=== PATIENT | female | born 1980 | race Caucasian/White ===

== ENCOUNTER 2021-02-26 08:39 | Emergency (ER) | payer SELFPAY ==
[2021-02-26] MEDS ORDERED: LIDOCAINE 2% W/EPI 1:200,000 MPF 20 ML VIAL IM ONE (09:14)
--- NOTE | 2021-02-26 09:59 | ER ---
Nurse's Notes [facility] Name: Maria Ines Phillip Age: 40 yrs Sex: Female : 1980 Arrival Date: 02/26/2021 Time: 08:43 Bed 23 Private MD: Diagnosis: Cutaneous abscess of right lower limb Presentation: 02/26 08:44 Chief complaint: Patient states: Pt presents to ER via POV with complaints of right kg thigh pain and possible abscess. Pt has has spot on leg for several months that's continue to get worse. Coronavirus screen: Client denies travel out of the [place] in the last 14 days. At this time, the client does not indicate any symptoms associated with coronavirus-19. Ebola Screen: Patient negative for fever greater than or equal to 101.5 degrees Fahrenheit, and additional compatible Ebola Virus Disease symptoms. Initial Sepsis Screen: Does the patient meet any 2 criteria? RR > 20 per min. Temp <36.0*C (96.8*F)) or > 38.3*C (100.9*F). Systolic BP < 90 mmHg. Does the patient have a suspected source of infection? No. Patient's initial sepsis screen is negative. Risk Assessment: Do you want to hurt yourself or someone else? Patient reports no desire to harm self or others. Onset of symptoms is unknown. Care prior to arrival: None. 08:44 Method Of Arrival: Ambulatory kg 08:44 Acuity: JAMES 4 kg Triage Assessment: 08:44 General: Behavior is calm, cooperative, quiet. Pain: Complains of pain in medial aspect kg of right thigh Pain radiates to right leg Pain currently is 7 out of 10 on a pain scale. Quality of pain is described as aching, tender, Pain began gradually. 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 - Family history:: not pertinent. - Social history:: Smoking status: Patient reports the use of cigarette tobacco products. - Hospitalizations: : No recent hospitalization is reported. Screenin:02 Abuse screen: Denies threats or abuse. Nutritional screening: No deficits noted. kg Tuberculosis screening: No symptoms or risk factors identified. Fall Risk None identified. Assessment: 08:59 General: Appears in no apparent distress. Pain: Complains of pain in right leg Pain kg radiates to right leg Pain currently is 7 out of 10 on a pain scale. level that patient reports is acceptable is 3 out of 10 on a pain scale. Quality of pain is described as aching, Pain began gradually, Is chronic, Alleviated by medications, rest, Aggravated by exercise, increased activity. 09:03 Neuro: No deficits noted. Cardiovascular: No deficits noted. Respiratory: No deficits kg noted. GI: Reports nausea. 09:04 : No deficits noted. EENT: No deficits noted. Derm: Skin is intact, Skin is dry, Skin kg is red, purple Skin temperature is warm Abscess located on medial aspect of right thigh is golf ball sized, Reports increased pain that is 7 out of 10 on a pain scale. Vital Signs: 09:02 BP 147 / 76; Pulse 72; Resp 18; Pulse Ox 100% on R/A; kg 10:51 BP 129 / 76; Pulse 63; Resp 18; Pulse Ox 100% on R/A; kg ED Course: 08:43 Patient arrived in ED. as 08:45 Moreno Simon MD is Attending Physician. rn 08:59 Arianna Sawyer is Primary Nurse. kg 09:02 No apparent distress. kg 09:02 Patient has correct armband on for positive identification. Bed in low position. Call kg light in reach. Side rails up X 1. 09:35 Triage completed. kg 09:59 Cordell Eid MD is Referral Physician. rn 10:52 Assist provider with the repair of a wound dehiscence located on right leg Performed by kg Moreno Simon MD cleaned with Betadine, irrigated with normal saline, packed with Packing, dressed with 4X4s, Patient tolerated well. 10:58 Patient Assisted with I\T\D. Antipyretics given from triage as ordered by an ER provider. kg 10:58 Patient did not have IV access during this emergency room visit. kg Administered Medications: 09:35 Drug: Lidocaine (1 %) 1 vials Volume: 20 ml; Route: Infiltration; kg Outcome: :59 Discharge ordered by . rn 10:57 Discharged to home ambulatory. kg 10:57 Condition: good 10:57 Discharge instructions given to patient, Demonstrated understanding of instructions, follow-up care, medications, wound care, Prescriptions given X 1. 10:59 Patient left the ED. kg Signatures: Tatiana Stanton Roman, MD MD rn Graham, Kristen kg Corrections: (The following items were deleted from the chart) 09:37 09:02 BP 147 / 76; Pulse 18bpm; Pulse Ox 100% RA; kg kg
--- NOTE | 2021-02-26 09:59 | EDPHYS ---
Physician Documentation [facility] Name: Maria Ines Phillip Age: 40 yrs Sex: Female : 1980 Arrival Date: 02/26/2021 Time: 08:43 Bed 23 Private MD: ED Physician Moreno Simon HPI: 02/26 08:53 This 40 yrs old Female presents to ER via Unassigned with complaints of rn Abscess, Thigh Pain. 08:53 The patient presents with an abscess of the right inner thigh. Description: The rn affected area is moderate sized, localized, erythematous, fluctuant, swollen, warm. Onset: The symptoms/episode began/occurred 1 week(s) ago. Possible cause(s): unknown. Associated signs and symptoms: Pertinent positives: erythema, Pertinent negatives: drainage, fever. Modifying factors: the symptoms are alleviated by nothing, the symptoms are aggravated by walking, touching. Severity of symptoms: At their worst the symptoms were moderate, in the emergency department the symptoms are unchanged. The patient has experienced similar episodes in the past. The patient has not recently seen a physician. Reports swelling and pain to right inner thigh, no drainage, hurts to walk because thighs rub together, no fever, reports chronic irritation to area but worse over last few days. . 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 - Family history:: not pertinent. - Social history:: Smoking status: Patient reports the use of cigarette tobacco products. - Hospitalizations: : No recent hospitalization is reported. ROS: 08:53 Constitutional: Negative for fever, chills, and weight loss, Cardiovascular: Negative rn for chest pain, palpitations, and edema, Respiratory: Negative for shortness of breath, cough, wheezing, and pleuritic chest pain, Abdomen/GI: Negative for abdominal pain, nausea, vomiting, diarrhea, and constipation, Back: Negative for injury and pain, MS/Extremity: Negative for injury and deformity, Skin: + abscess/swelling to right inner thigh Neuro: Negative for headache, weakness, numbness, tingling, and seizure. Exam: 08:53 Constitutional: This is a well developed, well nourished patient who is awake, alert, rn and in no acute distress. Skin: Warm, dry MS/ Extremity: Pulses equal, no cyanosis. Neurovascular intact. Full, normal range of motion. Equal circumference. 3cm x 4cm area of erythema and fluctuance/tenderness right proximal inner thigh, no spont drainage. No underlyin erythema or streaking. Swollen area mobile. Vital Signs: 09:02 BP 147 / 76; Pulse 72; Resp 18; Pulse Ox 100% on R/A; kg 10:51 BP 129 / 76; Pulse 63; Resp 18; Pulse Ox 100% on R/A; kg Procedures: 09:57 I \T\ D: Incision and drainage was performed for an abscess of the right medial aspect of rn right thigh Prepped with Betadine, Anesthetized with 5 ml's 1% Lidocaine w/ Epi. Incised with #11 blade. Drained large amount purulent fluid. serosanguinous fluid. bloody fluid. Loculations removed. Abscess cavity explored. Packed with iodoform gauze, Dressing: sterile 4x4 gauze, the patient tolerated the procedure well. MDM: 08:45 Patient medically screened. rn 09:57 Differential diagnosis: abscess, cyst. Data reviewed: vital signs, nurses notes, and as rn a result, I will discharge patient. Counseling: I had a detailed discussion with the patient and/or guardian regarding: the historical points, exam findings, and any diagnostic results supporting the discharge/admit diagnosis, the need for outpatient follow up, to return to the emergency department if symptoms worsen or persist or if there are any questions or concerns that arise at home. Response to treatment: the patient's symptoms have markedly improved after treatment, and as a result, I will discharge patient. Special discussion: I discussed with the patient/guardian in detail that at this point there is no indication for admission to the hospital. It is understood, however, that if the symptoms persist or worsen the patient needs to return immediately for re-evaluation. Based on the history and exam findings, there is no indication for further emergent testing or inpatient evaluation. I discussed with the patient/guardian the need to see the general surgeon for further evaluation of the symptoms. 02/26 08:53 Order name: Incision \T\ Drainage Setup; Complete Time: 09:06 rn Administered Medications: 09:35 Drug: Lidocaine (1 %) 1 vials Volume: 20 ml; Route: Infiltration; kg Disposition: 02/26/21 09:59 Discharged to Home. Impression: Cutaneous abscess of right lower limb. - Condition is Stable. - Discharge Instructions: Skin Abscess, Incision and Drainage, Wound Packing, Incision and Drainage, Care After. - Prescriptions for Clindamycin HCl 300 mg Oral Capsule - take 1 capsule by ORAL route every 6 hours for 10 days; 40 capsule. - Medication Reconciliation Form, Thank You Letter, Antibiotic Education, Prescription Opioid Use form. - Follow up: Cordell Eid MD; When: As needed; Reason: Recheck today's complaints, Re-evaluation by your physician. - Problem is new. - Symptoms have improved. Signatures: Moreno Simon MD MD rn Graham, Kristen kg Corrections: (The following items were deleted from the chart) 10:59 09:59 02/26/2021 09:59 Discharged to Home. Impression: Cutaneous abscess of right lower kg limb. Condition is Stable. Forms are Medication Reconciliation Form, Thank You Letter, Antibiotic Education, Prescription Opioid Use. Follow up: Dr. Cordell Eid; When: As needed; Reason: Recheck today's complaints, Re-evaluation by your physician. Problem is new. Symptoms have improved. rn
[2021-02-26 11:07] VITALS: O2SAT 100
[2021-02-26 11:08] VITALS: BP 129/76
== END 2021-02-26 10:59 | disposition home or self-care (01) ==
LOC: ER 08:39
PROC: 0J9N0ZZ Drainage of Right Lower Leg Subcutaneous Tissue and Fascia, Open Approach (ICD-10-PCS; principal; 2021-02-26)
DX: L02.415 Cutaneous abscess of right lower limb (principal); F17.210 Nicotine dependence, cigarettes, uncomplicated
CPT/HCPCS: 99284

== ENCOUNTER 2021-03-01 14:55 | Emergency (ER) | payer SELFPAY ==
--- NOTE | 2021-03-01 18:25 | ER ---
Nurse's Notes [facility] Name: Maria Ines Phillip Age: 40 yrs Sex: Female : 1980 Arrival Date: 03/01/2021 Time: 15:01 Bed 12 Private MD: Diagnosis: Presentation: 03/01 15:27 Chief complaint: Patient states: Had I\T\D on R inner thigh area. Here to make ll1 sure the packing is fully removed, and to make sure it is healing correctly. Taking antibiotics as prescribed. Coronavirus screen: Client denies travel out of the [place] in the last 14 days. At this time, the client does not indicate any symptoms associated with coronavirus-19. Ebola Screen: Patient denies travel to an Ebola-affected area in the 21 days before illness onset. Initial Sepsis Screen: Does the patient meet any 2 criteria? No. Patient's initial sepsis screen is negative. Does the patient have a suspected source of infection? Yes: Skin breakdown/wound. Risk Assessment: Do you want to hurt yourself or someone else? Patient reports no desire to harm self or others. Onset of symptoms was February 26, 2021. 15:27 Method Of Arrival: Ambulatory ll1 15:27 Acuity: JAMES 5 ll1 Historical: - Allergies: 15:30 No Known Allergies; ll1 - PMHx: 15:30 Asthma; ll1 - PSHx: 15:30 ; ll1 - Immunization history:: Flu vaccine is not up to date. - Social history:: Smoking status: Patient reports the use of cigarette tobacco products, smokes one-half pack cigarettes per day. Vital Signs: 15:27 BP 141 / 105; Pulse 88; Resp 14; Temp 97.3; Pulse Ox 96% ; Weight 99.79 kg; Height 5 ll1 ft. 11 in. (180.34 cm); Pain 2/10; 15:27 Body Mass Index 30.68 (99.79 kg, 180.34 cm) ll1 ED Course: 15:01 Patient arrived in ED. mr 15:27 Arm band placed on. ll1 15:30 Triage completed. [facility] 18:15 [facility] Dutton [facility] arthur 18:15 Romeo Gibbs MD is Attending Physician. arthur Administered Medications: No medications were administered Outcome: 18: Eloped before seeing physician : Condition: unchanged 18:25 Patient left the ED. Signatures: Isaiah Dutton PA PA jmm Rivera, Mary mr Smirch, Shelby, RN RN ss Cindy Wells RN RN ll1
[2021-03-01 18:31] VITALS: BP 141/105; TEMP 97.3; O2SAT 96
== END 2021-03-01 18:25 | disposition left against medical advice (07) ==
LOC: ER 14:55
DX: Z53.21 Procedure and treatment not carried out due to patient leaving prior to being seen by health care provider (principal)
CPT/HCPCS: 99281

== ENCOUNTER 2021-03-02 09:12 | Emergency (ER) | payer SELFPAY ==
--- NOTE | 2021-03-02 09:54 | ER ---
Nurse's Notes [facility] Name: Maria Ines Phillip Age: 40 yrs Sex: Female : 1980 Arrival Date: 03/02/2021 Time: 09:24 Bed 30 Private MD: Diagnosis: Encounter for change or removal of nonsurgical wound dressing Presentation: 03/02 09:26 Chief complaint: Patient states: R groin abscess s/p I\T\D on . Took packing out ll1 yesterday, tried to re-pack it and was unable to put a lot in. Here for wound recheck. States site looks better, but is more sore today then yesterday. Tried to come here yesterday, wait was too long. Coronavirus screen: Client denies travel out of the [place] in the last 14 days. At this time, the client does not indicate any symptoms associated with coronavirus-19. Ebola Screen: Patient denies travel to an Ebola-affected area in the 21 days before illness onset. Initial Sepsis Screen: Does the patient meet any 2 criteria? No. Patient's initial sepsis screen is negative. Does the patient have a suspected source of infection? Yes: Skin breakdown/wound. Risk Assessment: Do you want to hurt yourself or someone else? Patient reports no desire to harm self or others. Onset of symptoms was February 26, 2021. 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 - Social history:: Smoking status: Patient reports the use of cigarette tobacco products, smokes one-half pack cigarettes per day. Screenin:41 Abuse screen: Denies threats or abuse. Nutritional screening: No deficits noted. ll1 Tuberculosis screening: No symptoms or risk factors identified. Fall Risk Gait- Impaired (20 pts.). Total Baum Fall Scale indicates No Risk (0-24 pts). Assessment: 09:50 General: Appears in no apparent distress. Behavior is calm, cooperative, appropriate ll1 for age. Pain: Complains of pain in R upper leg Quality of pain is described as aching. Neuro: No deficits noted. Cardiovascular: No deficits noted. Respiratory: No deficits noted. Derm: Abscess packing removed from abscess. Re packed, tolerated well. Site is getting better overall. Yellow drainage noted on old packing. Vital Signs: 09:26 BP 148 / 101; Pulse 77; Resp 16; Temp 97.5; Pulse Ox 100% ; Weight 99.79 kg; Height 5 ll1 ft. 11 in. (180.34 cm); Pain 6/10; 09:26 Body Mass Index 30.68 (99.79 kg, 180.34 cm) 1 ED Course: 09:24 Patient arrived in ED. ll1 09:25 Arm band placed on. ll1 09:29 Triage completed. ll1 09:40 Colby Parker NP is PHCP. pm1 09:40 Ramón Guevara MD is Attending Physician. pm1 09:41 Patient placed in an exam room, on a stretcher. ll1 09:41 Patient has correct armband on for positive identification. Bed in low position. Call [facility] light in reach. Cardiac monitoring not applicable on this patient. 09:54 Soniya Putnam, RN is Primary Nurse. ca1 10:02 No provider procedures requiring assistance completed. Patient did not have IV access ca1 during this emergency room visit. Administered Medications: No medications were administered Outcome: 09:54 Discharge ordered by . pm1 10:02 Discharged to home ambulatory. ca1 10:02 Condition: stable 10:02 Discharge instructions given to patient, Instructed on discharge instructions, follow up and referral plans. wound care, Demonstrated understanding of instructions, follow-up care, wound care. 10:03 Patient left the ED. ca1 Signatures: Colby Parker NP VALVE SEATER OPERATOR pm1 Soniya Putnam, RN RN ca1 Cindy Wells RN RN [facility]
--- NOTE | 2021-03-02 09:55 | EDPHYS ---
Physician Documentation [facility] Name: Maria Ines Phillip Age: 40 yrs Sex: Female : 1980 Arrival Date: 03/02/2021 Time: 09:24 Bed 30 Private MD: ED Physician Ramón Guevara HPI: 03/02 09:53 This 40 yrs old Female presents to ER via Ambulatory with complaints of Wound pm1 Check. 09:53 Patient presents to ED for recheck of: abscess. pm1 09:53 The affected area is on the right leg. Previous treatment: The patient was initially pm1 treated on February 26, 2021, the care was rendered at [facility], Treatment type: The patient's original treatment included an I\T\D, Outpatient prescription(s): The patient was given prescription(s) for clindamycin. Progress: The patient reports excellent improvement in the affected area. There has been resolution, improvement, or non-development of any drainage, fever, pain, redness or swelling, improvement in the size of the abscess. There is no signs of cellulitis. Decreased amount of drainage. No fever or redness. The patient has not experienced similar symptoms in the past. Patient presents to the ER for evaluation of her wound and assistance in packing . 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 - Social history:: Smoking status: Patient reports the use of cigarette tobacco products, smokes one-half pack cigarettes per day. ROS: 09:53 Constitutional: Negative for fever, chills, and weight loss, Cardiovascular: Negative pm1 for chest pain, palpitations, and edema, Respiratory: Negative for shortness of breath, cough, wheezing, and pleuritic chest pain, MS/Extremity: Negative for injury and deformity. 09:53 Skin: Positive for abscess, of the right leg, Negative for cellulitis. Exam: 09:53 Constitutional: This is a well developed, well nourished patient who is awake, alert, pm1 and in no acute distress. Head/Face: Normocephalic, atraumatic. 09:53 Cardiovascular: Exam negative for acute changes, Rate: normal, Rhythm: regular, Pulses: no pulse deficits are appreciated. 09:53 Respiratory: Exam negative for acute changes, respiratory distress, shortness of breath. 09:53 Skin: Wound recheck: Abscess: the wound has improved, decreased discharge. 09:53 Neuro: Exam negative for acute changes, Orientation: is normal, Mentation: is normal, Motor: is normal, moves all fours, Sensation: is normal, no obvious gross deficits. Vital Signs: 09:26 BP 148 / 101; Pulse 77; Resp 16; Temp 97.5; Pulse Ox 100% ; Weight 99.79 kg; Height 5 ll1 ft. 11 in. (180.34 cm); Pain 6/10; 09:26 Body Mass Index 30.68 (99.79 kg, 180.34 cm) ll1 MDM: 09:40 Patient medically screened. pm1 09:53 Data reviewed: vital signs. Data interpreted: Pulse oximetry: on room air is 100 %. pm1 Interpretation: normal. 09:53 Counseling: I had a detailed discussion with the patient and/or guardian regarding: the pm1 historical points, exam findings, and any diagnostic results supporting the discharge/admit diagnosis, the need for outpatient follow up, for definitive care, a general surgeon, to return to the emergency department if symptoms worsen or persist or if there are any questions or concerns that arise at home. Administered Medications: No medications were administered Disposition: 03/03 07:02 Co-signature as Attending Physician, Ramón Guevara MD I agree with the assessment and antonio plan of care. Disposition: 03/02/21 09:54 Discharged to Home. Impression: Encounter for change or removal of nonsurgical wound dressing. - Condition is Stable. - Discharge Instructions: Incision and Drainage, Wound Packing. - Medication Reconciliation Form, Thank You Letter, Antibiotic Education, Prescription Opioid Use form. - Follow up: Emergency Department; When: As needed; Reason: Worsening of condition. Follow up: Private Physician; When: 2 - 3 days; Reason: Recheck today's complaints, Continuance of care, Re-evaluation by your physician. - Problem is new. - Symptoms have improved. - Notes: Continue taking the antibiotic prescribed to you previously Signatures: Ramón Guevara MD MD cha Marinas, Patrick, NP RESEARCH LABORATORY TECHNICIAN pm1 Soniya Putnam RN RN ca1 Cindy Wells RN RN ll1 Corrections: (The following items were deleted from the chart) 03/02 10:03 09:54 03/02/2021 09:54 Discharged to Home. Impression: Encounter for change or removal ca1 of nonsurgical wound dressing. Condition is Stable. Forms are Medication Reconciliation Form, Thank You Letter, Antibiotic Education, Prescription Opioid Use. Follow up: Emergency Department; When: As needed; Reason: Worsening of condition. Follow up: Private Physician; When: 2 - 3 days; Reason: Recheck today's complaints, Continuance of care, Re-evaluation by your physician. Problem is new. Symptoms have improved. pm1
[2021-03-02 10:08] VITALS: BP 148/101; TEMP 97.5; O2SAT 100
== END 2021-03-02 10:03 | disposition home or self-care (01) ==
LOC: ER 09:12
DX: Z48.00 Encounter for change or removal of nonsurgical wound dressing (principal)
CPT/HCPCS: 99281

== ENCOUNTER 2021-11-11 17:04 | Emergency (ER) | payer SELFPAY ==
--- NOTE | 2021-11-11 17:53 | ER ---
Nurse's Notes [facility] Name: Maria Ines Phillip Age: 41 yrs Sex: Female : 1980 Arrival Date: 11/11/2021 Time: 17:11 Bed Waiting Private MD: Diagnosis: Acute suppurative otitis media with spontaneous rupture of ear drum, right ear Presentation: 11/11 17:44 Chief complaint: Patient states: My right ear is draining really bad X 1 day, has blood ld1 in it. It is making the entire right side of my face hurt. Pt reporting ear ringing. Coronavirus screen: At this time, the client does not indicate any symptoms associated with coronavirus-19. Ebola Screen: No symptoms or risks identified at this time. Initial Sepsis Screen: Does the patient meet any 2 criteria? No. Patient's initial sepsis screen is negative. Does the patient have a suspected source of infection? No. Patient's initial sepsis screen is negative. Risk Assessment: Do you want to hurt yourself or someone else? Patient reports no desire to harm self or others. Onset of symptoms was November 11, 2021. 17:44 Method Of Arrival: Ambulatory ld1 17:44 Acuity: JAMES 4 ld1 Triage Assessment: 17:45 General: Appears in no apparent distress. comfortable, Behavior is calm, cooperative, ld1 appropriate for age. Pain: Complains of pain in right ear. Neuro: Level of Consciousness is awake, alert, obeys commands, Oriented to person, place, time, situation. Respiratory: Airway is patent Respiratory effort is even, unlabored, Respiratory pattern is regular, symmetrical. 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 - Social history:: Smoking status: Patient reports the use of cigarette tobacco products, smokes one-half pack cigarettes per day, Patient/guardian denies using alcohol. Screenin:29 Abuse screen: Denies threats or abuse. Denies injuries from another. Nutritional ss screening: No deficits noted. Tuberculosis screening: Never had TB. Fall Risk None identified. Assessment: 17:48 Reassessment: MARGARETH Walton in triage assessing patient. ld1 18:29 Reassessment: Patient appears in no apparent distress at this time. Patient and/or ss family updated on plan of care and expected duration. Pain level reassessed. Patient is alert, oriented x 3, equal unlabored respirations, skin warm/dry/pink. General: Appears in no apparent distress. comfortable. Vital Signs: 17:44 BP 147 / 94; Pulse 84; Resp 18; Temp 98.9(O); Pulse Ox 100% on R/A; Weight 99.79 kg; ld1 Height 5 ft. 11 in. (180.34 cm); Pain 0/10; 17:44 Body Mass Index 30.68 (99.79 kg, 180.34 cm) ld1 ED Course: 17:11 Patient arrived in ED. ds1 17:45 Triage completed. ld1 17:45 Arm band placed on right wrist. EKG completed in triage. Results shown to MD. EKG ld1 completed in triage. Results shown to MD. 17:46 [facility] Parker [facility] pm1 17:46 Moreno Simon MD is Attending Physician. pm1 17:52 Rhonda Gonsalez MD is Referral Physician. pm1 18:29 Patient has correct armband on for positive identification. Bed in low position. ss 18:29 No provider procedures requiring assistance completed. Patient did not have IV access ss during this emergency room visit. Administered Medications: No medications were administered Outcome: 17:52 Discharge ordered by MD. pm1 18:29 Discharged to home ambulatory. ss 18:29 Condition: good 18:29 Discharge instructions given to patient, family, Instructed on discharge instructions, follow up and referral plans. Demonstrated understanding of instructions, follow-up care. 18:31 Patient left the ED. ss Signatures: Cheryl Menchaca ds1 Evelyn Reyes RN RN Colby Parker NP STAFFING EXECUTIVE pm1 Kiana Galo RN RN ld1
--- NOTE | 2021-11-11 17:53 | EDPHYS ---
Physician Documentation [facility] Name: Maria Ines Phillip Age: 41 yrs Sex: Female : 1980 Arrival Date: 11/11/2021 Time: 17:11 Bed Waiting Private MD: ED Physician Moreno Simon HPI: 11/11 17:51 This 41 yrs old Female presents to ER via Ambulatory with complaints of Drainage From pm1 Ear. 17:51 The patient presents with drainage, pain. The complaints affect the right ear. Onset: pm1 The symptoms/episode began/occurred today. Modifying factors: The symptoms are alleviated by nothing, the symptoms are aggravated by nothing. Associated signs and symptoms: Pertinent negatives: fever, sore throat. Severity of symptoms: in the emergency department the symptoms are unchanged. The patient has not experienced similar symptoms in the past. The patient has not recently seen a physician. 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 - Social history:: Smoking status: Patient reports the use of cigarette tobacco products, smokes one-half pack cigarettes per day, Patient/guardian denies using alcohol. ROS: 17:51 Constitutional: Negative for fever, chills, and weight loss. pm1 17:51 Cardiovascular: Negative for chest pain, palpitations, and edema, Respiratory: Negative for shortness of breath, cough, wheezing, and pleuritic chest pain, Abdomen/GI: Negative for abdominal pain, nausea, vomiting, diarrhea, and constipation, MS/Extremity: Negative for injury and deformity, Skin: Negative for injury, rash, and discoloration, Neuro: Negative for headache, weakness, numbness, tingling, and seizure. 17:51 ENT: Positive for drainage from ear(s), ear pain, Negative for sore throat. 17:51 All other systems are negative. Exam: 17:51 Constitutional: This is a well developed, well nourished patient who is awake, alert, pm1 and in no acute distress. Head/Face: Normocephalic, atraumatic. 17:51 Skin: Warm, dry with normal turgor. Normal color with no rashes, no lesions, and no evidence of cellulitis. MS/ Extremity: Pulses equal, no cyanosis. Neurovascular intact. Full, normal range of motion. 17:51 Eyes: Exam is negative for acute changes, Periorbital structures: no acute changes, Pupils: no acute changes, Extraocular movements: no acute changes, Sclera: no acute changes, icterus, is not appreciated. 17:51 ENT: External ear(s): no acute changes, Ear canal(s): purulent discharge, that is minimal, in the right canal, TM's: bulging, on the right, erythema, that is moderate, on the right, rupture, on the right, with purulent discharge, Examination of the other ear shows no obvious abnormality, Mouth: no acute changes, Lips: normal, moist, Oral mucosa: normal, pink and intact, moist, Posterior pharynx: no acute changes. 17:51 Neck: Lymph nodes: lymphadenopathy is appreciated, anterior cervical nodes. 17:51 Cardiovascular: Exam negative for acute changes, Rate: normal, Rhythm: regular, Pulses: no pulse deficits are appreciated. 17:51 Respiratory: Exam negative for acute changes, respiratory distress, shortness of breath. 17:51 Neuro: Exam negative for acute changes, Orientation: is normal, Mentation: is normal, Motor: is normal, moves all fours. Vital Signs: 17:44 BP 147 / 94; Pulse 84; Resp 18; Temp 98.9(O); Pulse Ox 100% on R/A; Weight 99.79 kg; ld1 Height 5 ft. 11 in. (180.34 cm); Pain 0/10; 17:44 Body Mass Index 30.68 (99.79 kg, 180.34 cm) ld1 MDM: 17:51 Data reviewed: vital signs. Data interpreted: Pulse oximetry: on room air is 100 %. pm1 Interpretation: normal. 17:51 Counseling: I had a detailed discussion with the patient and/or guardian regarding: the pm1 historical points, exam findings, and any diagnostic results supporting the discharge/admit diagnosis, the need for outpatient follow up, an ENT specialist, to return to the emergency department if symptoms worsen or persist or if there are any questions or concerns that arise at home. 17:52 Patient medically screened. pm1 17:56 ED course: PMPaware reviewed. pm1 Administered Medications: No medications were administered Disposition: 18:46 Co-signature as Attending Physician, Moreno Simon MD. rn Disposition Summary: 11/11/21 17:52 Discharge Ordered Location: Home pm1 Problem: new pm1 Symptoms: have improved pm1 Condition: Stable pm1 Diagnosis - Acute suppurative otitis media with spontaneous rupture of ear drum, right ear pm1 Followup: pm1 - With: Rhonda Gonsalez MD - When: 2 - 3 days - Reason: Recheck today's complaints, Continuance of care, Re-evaluation by your physician Discharge Instructions: - Discharge Summary Sheet pm1 - Eardrum Rupture, Adult pm1 - Otitis Media, Adult pm1 Forms: - Medication Reconciliation Form pm1 - Thank You Letter pm1 - Antibiotic Education pm1 - Prescription Opioid Use pm1 Prescriptions: - Augmentin 875-125 mg Oral Tablet - take 1 tablet by ORAL route every 12 hours for 10 days; 20 tablet; Refills: 0, pm1 Product Selection Permitted - Tylenol-Codeine #3 300 mg-30 mg Oral - take 2 tablet by ORAL route every 6 hours As needed; 20 tablet; Refills: 0, pm1 Product Selection Permitted Signatures: Moreno Simon MD MD rn Marinas, Patrick, NP [employer] ARCHITECT pm1 Kiana Galo, RN RN ld1
[2021-11-11 18:39] VITALS: BP 147/94; TEMP 98.9; O2SAT 100
== END 2021-11-11 18:31 | disposition home or self-care (01) ==
LOC: ER 17:04
DX: H66.011 Acute suppurative otitis media with spontaneous rupture of ear drum, right ear (principal); I10 Essential (primary) hypertension; F17.210 Nicotine dependence, cigarettes, uncomplicated
CPT/HCPCS: 99281